=== PATIENT | female | born 1940 | race Caucasian/White ===

== ENCOUNTER 2018-02-16 05:36 | Day surgery (SDC) | payer OTHER ==
[~2018-02-16 05:36] MED LIST: ALPRAZOLAM1 M1 PO; GLIMEPIRIDE2 MG PO; HYDROCHLOROTH12.5 MG PO; LEVO-T75 MCG PO; LIPITOR40 MG PO; LISINOPRIL40 MG PO; METFORMIN HCL500 MG PO; NORVASC5 MG PO; TENORMIN50 MG PO
[2018-02-16] MEDS ORDERED: NAPROXEN SODIU550 M1 PO (08:17)
== END 2018-02-16 12:00 | disposition home or self-care (01) ==
LOC: CIR.AMB 05:36
DX: N84.0 Polyp of corpus uteri (principal); N95.0 Postmenopausal bleeding